=== PATIENT | female | born 1980 ===

== ENCOUNTER 2022-02-17 23:10 | Emergency (ER) | payer MEDICAID ==
[~2022-02-17] VITALS: Ht 170.2 cm; Wt 82.0 kg
[2022-02-17 23:23] VITALS: BP 156/98
[2022-02-18] MEDS ORDERED: IBUPROFEN 400MG TABLET PO ONE (00:45)
[2022-02-18] MEDS ORDERED: IBUP-2028 MT (02:22)
== END 2022-02-18 02:58 | disposition home or self-care (01) ==
LOC: ER 23:10
DX: S93.492A Sprain of other ligament of left ankle, initial encounter (principal); M25.512 Pain in left shoulder; M25.562 Pain in left knee; M25.561 Pain in right knee; I10 Essential (primary) hypertension; V43.52XA Car driver injured in collision with other type car in traffic accident, initial encounter; Y93.89 Activity, other specified; Y92.410 Unspecified street and highway as the place of occurrence of the external cause
CPT/HCPCS: 73030; 73560; 73610; 99284